=== PATIENT | female | born 1950 | race Caucasian/White ===

== ENCOUNTER 2018-01-22 15:48 | Emergency (ER) | payer SELFPAY ==
[~2018-01-22] VITALS: Ht 165.1 cm; Wt 90.7 kg
[2018-01-22 16:13] VITALS: BP 123/77
[2018-01-22] MEDS ORDERED: LORazepam 0.5 MG TAB PO ONE (16:30)
[2018-01-22 16:48] LABS: Basophils # (auto) 0 uL; Basophils % (auto) 0.5 % (0.0-2.0); Eosinophils # (auto) 0.1 uL; Eosinophils % (auto) 0.8 % (0.0-7.0); Hematocrit 39.2 % (36.0-46.0); Hemoglobin 12.9 g/dL (12.2-16.2); Lymphocytes # (auto) 1.6 uL; Lymphocytes % (auto) 17.5 % (10.0-50.0); Mean Corpuscular Hemoglobin 27.4 pg (28.0-32.0); Monocytes # (auto) 0.7 uL; Neutrophils # (auto) 6.9 uL; Neutrophils % (auto) 73.2 % (37.0-80.0); Platelet Count (auto) 216 10^3/uL (140-450); Red Blood Cells 4.72 10^6/uL (4.0-5.20); Red Cell Distribution Width 16.1 % (11.8-14.3); White Blood Cell 9.4 10^3/uL (4.4-10.8)
[2018-01-22 17:10] LABS: Alanine Aminotransferase 22 U/L (13-56); Albumin 3.6 g/dL (3.4-5.0); Alkaline Phosphatase 115 U/L (45-117); Anion Gap 7 (5-15); Aspartate Aminotransferase 21 U/L (15-37); BUN/Creatinine Ratio 18.4; Bilirubin, Total 0.3 mg/dL (0.2-1.0); Blood Urea Nitrogen 18 mg/dL (7-18); Calcium 8.1 mg/dL (8.5-10.1); Carbon Dioxide 26 mmol/L (21-32); Chloride 106 mmol/L (98-107); GFR African American 73 mL/min; GFR Non-African American 61 mL/min; Glucose 80 mg/dL (74-106); Potassium 3.6 mmol/L (3.5-5.1); Sodium 139 mmol/L (136-145)
== END 2018-01-22 17:36 | disposition home or self-care (01) ==
LOC: EDBD 15:48 → ER 15:48
DX: F41.9 Anxiety disorder, unspecified (principal); I34.1 Nonrheumatic mitral (valve) prolapse
CPT/HCPCS: 36415; 71045; 80053; 84484; 85025